=== PATIENT | female | born 2000 | race Two or more races ===

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

== ENCOUNTER 2024-04-20 14:47 | Emergency (ER) | payer MEDICAID ==
[~2024-04-20] VITALS: Ht 152.4 cm; Wt 52.0 kg
[2024-04-20 15:11] VITALS: BP 131/84; PULSE 98; RESP 18; O2SAT 98
== END 2024-04-20 20:00 | disposition home or self-care (01) ==
LOC: ER 14:47
DX: R55 Syncope and collapse (principal); R42 Dizziness and giddiness; T78.1XXA Other adverse food reactions, not elsewhere classified, initial encounter; X58.XXXA Exposure to other specified factors, initial encounter